=== PATIENT | male | born 1985 | race Caucasian/White ===

== ENCOUNTER 2023-10-03 11:02 | Emergency (ER) | payer OTHER ==
[~2023-10-03] VITALS: Ht 180.3 cm; Wt 113.8 kg
[2023-10-03 11:06] VITALS: BP 138/92; PULSE 95; RESP 16; TEMP 98; O2SAT 97
[2023-10-03] MEDS: LIDOcaine 1% 30ml preserv. free vial IJ ONE (12:44)
== END 2023-10-03 14:20 | disposition home or self-care (01) ==
LOC: ER 11:03
DX: S61.211A Laceration without foreign body of left index finger without damage to nail, initial encounter (principal); W26.0XXA Contact with knife, initial encounter; Y93.89 Activity, other specified; Y92.89 Other specified places as the place of occurrence of the external cause; Y99.8 Other external cause status
CPT/HCPCS: 12001; 73140; 99283; J7030; A6258; A6449